=== PATIENT | male | born 1955 | race Caucasian/White ===

== ENCOUNTER 2019-12-14 13:29 | Emergency (ER) | payer MEDICAID ==
[2019-12-14] MEDS ORDERED: Sodium Chloride 0.9% 1,000 ML IV ONE (14:11)
[2019-12-14] MEDS ORDERED: Ondansetron 4 MG/2 ML SDV IVPUSH ONE (14:11)
[2019-12-14] MEDS ORDERED: HYDROmorphone 0.5 MG/0.5 ML Syringe IVPUSH ONE (14:11)
--- NOTE | 2019-12-14 14:19 | EDM.PDOC ---
ED HPI GENERAL MEDICAL PROBLEM - General Chief Complaint: Gastrointestinal Problem Stated Complaint: PAIN LOWER ABDOMEN Time Seen by Provider: 12/14/19 14:00 Source of Information: Reports: Patient History Limitations: Reports: No Limitations - History of Present Illness INITIAL COMMENTS - FREE TEXT/NARRATIVE: Moy is a 64 year old male, presents to the ED today with c/o lower abdominal pain. Patient has no hx of this, ate some smoked chicken yesterday, had lower pain a few hours later, felt bloated and constipated, took some Dulcolax and had a bowel movement. Today felt better, ate lunch now has more pain. denies any vomiting, some nausea, several small stools today, no blood. Patient denies any hx of this, did have a colonoscopy a couple of years ago with diverticulosis. Patient denies any abdominal surgical hx. Nothing has made pain better or worse today. Onset: Gradual Duration: Day(s): (2) Lower Abdomen Pain Score (Numeric/FACES): 3 - Related Data Allergies Allergy/AdvReac Type Severity Reaction Status Date / Time Fish Containing Products Allergy Anaphylactic Verified 12/14/19 13:49 Shock NSAIDS (Non-Steroidal Allergy Other Verified 12/14/19 13:49 Anti-Inflamma peanut Allergy Anaphylactic Verified 12/14/19 13:49 Shock Home Meds: Home Meds Aspirin [Halfprin] 81 mg PO DAILY 03/21/18 [History] Cholecalciferol (Vitamin D3) [Vitamin D3] 1,000 unit PO BID 03/21/18 [History] Furosemide [Lasix] 40 mg PO DAILY 03/21/18 [History] Lisinopril 10 mg PO BID 03/21/18 [History] Simvastatin [Zocor] 40 mg PO BEDTIME 03/21/18 [History] allopurinoL [Zyloprim] 150 mg PO DAILY 03/21/18 [History] mycophenolate mofetiL [Cellcept] 500 mg PO BID 03/21/18 [History] Past Medical History HEENT History: Reports: Cataract, Impaired Vision Cardiovascular History: Reports: High Cholesterol, Hypertension Respiratory History: Reports: Other (See Below) Other Respiratory History: bronchitis x1 pneumonia x 2 in last 5 years Gastrointestinal History: Reports: None Genitourinary History: Reports: Renal Disease Musculoskeletal History: Reports: Arthritis, Fracture, Gout Oncologic (Cancer) History: Reports: Prostate - Infectious Disease History Infectious Disease History: Reports: Chicken Pox, Measles - Past Surgical History Head Surgeries/Procedures: Reports: None HEENT Surgical History: Reports: None Cardiovascular Surgical History: Reports: None Respiratory Surgical History: Reports: None GI Surgical History: Reports: Colonoscopy, Hernia, Inguinal Male Surgical History: Reports: Penile Surgery, Prostatectomy Musculoskeletal Surgical History: Reports: None Oncologic Surgical History: Reports: None Dermatological Surgical History: Reports: None Social & Family History - Family History Family Medical History: Noncontributory - Tobacco Use Smoking Status *Q: Never Smoker Second Hand Smoke Exposure: No - Caffeine Use Caffeine Use: Reports: Soda - Alcohol Use Days Per Week of Alcohol Use: 3 Number of Drinks Per Day: 1 Total Drinks Per Week: 3 - Recreational Drug Use Recreational Drug Use: No ED ROS GENERAL - Review of Systems Review Of Systems: Comprehensive ROS is negative, except as noted in HPI. ED EXAM, GI/ABD - Physical Exam Exam: See Below Exam Limited By: No Limitations General Appearance: Alert, WD/WN Ears: Normal External Exam Nose: Normal Inspection Throat/Mouth: Normal Inspection Head: Atraumatic Neck: Normal Inspection Respiratory/Chest: No Respiratory Distress, Lungs Clear Cardiovascular: Normal Peripheral Pulses, Regular Rate, Rhythm GI/Abdominal Exam: Normal Bowel Sounds, Soft, Tender (across lower abdomen, left > then right) Back Exam: Normal Inspection Extremities: Normal Inspection Neurological: Alert, Oriented Psychiatric: Normal Affect Skin Exam: Warm, Dry Lymphatic: No Adenopathy Course - Vital Signs Last Recorded V/S: Last Vital Signs Temp 36.6 C 12/14/19 13:54 Pulse 66 12/14/19 15:32 Resp 18 12/14/19 13:54 BP 112/62 12/14/19 15:32 Pulse Ox 98 12/14/19 14:02 Moy is a 64 year old male, presents with lower abdominal pain, constipation type symptoms. Please refer to HPI and focused exam. Tender to lower abdomen, L > R. Concern with diverticulosis for diverticulitis, less likely appendicitis. Low risk for obstruction but on the differential. Blood work obtained, patient given IV fluids here with IV Dilaudid with pain improvement. Blood work reassuring, normal white count. UA negative, mildly elevated CRP. CT scan consistent with diverticulitis, no rupture or abscess noted. Patient updated, discussed in detail. Will start on Cipro/Flagyl. Zofran for nausea as needed. Oxycodone for pain, narcotic safety and side effects discussed. Follow up with PCP on Tuesday as scheduled (physical), reasons to return to the ED discussed, patient and agreeable and patient discharged in stable condition. - Orders/Labs/Meds Orders: Active Orders 24 hr Category Date Time Status Peripheral IV Care [RC] . DIRECTED Care 12/14/19 14:10 Active Iopamidol [Isovue-300 (61%)] Med 12/14/19 15:00 Active 150 ml IV . DIRECTED Sodium Chloride 0.9% [Normal Saline] 80 ml Med 12/14/19 15:00 Active IV ASDIRECTED Sodium Chloride 0.9% [Saline Flush] Med 12/14/19 14:10 Active 10 ml FLUSH ASDIRECTED PRN Peripheral IV Insertion Adult [OM.PC] Routine Oth 12/14/19 14:10 Ordered Medication Orders Sodium Chloride (Normal Saline) 80 mls @ 3 mls/sec IV ASDIRECTED RADHA Last Admin: 12/14/19 15:32 Dose: 3 mls/sec Documented by: DELMY Iopamidol (Isovue-300 (61%)) 150 ml IV . DIRECTED RADHA Last Admin: 12/14/19 15:32 Dose: 136 ml Documented by: DELMY Sodium Chloride (Saline Flush) 10 ml FLUSH ASDIRECTED PRN PRN Reason: Keep Vein Open Last Admin: 12/14/19 15:32 Dose: 10 ml Documented by: Admin: 12/14/19 14:30 Dose: 10 ml Documented by: JOAQUÍN Labs: Laboratory Tests 12/14/19 12/14/19 12/14/19 Range/Units 14:10 14:17 14:17 WBC 7.9 (4.5-11.0) K/uL RBC 4.81 (4.30-5.90) M/uL Hgb 14.3 (12.0-15.0) g/dL Hct 44.1 (40.0-54.0) % MCV 92 (80-98) fL MCH 30 (27-31) pg MCHC 32 (32-36) % Plt Count 198 (150-400) K/uL Neut % (Auto) 76 H (36-66) % Lymph % (Auto) 16 L (24-44) % [place] % (Auto) 8 H (2-6) % Eos % (Auto) 1 L (2-4) % Baso % (Auto) 0 (0-1) % Sodium 140 (140-148) mmol/L Potassium 3.7 (3.6-5.2) mmol/L Chloride 104 (100-108) mmol/L Carbon Dioxide 26 (21-32) mmol/L Anion Gap 10.0 (5.0-14.0) mmol/L BUN 13 (7-18) mg/dL Creatinine 1.1 (0.8-1.3) mg/dL Est Cr Clr Drug Dosing 76.67 mL/min Estimated GFR (MDRD) > 60 (>60) Glucose 137 H (74-106) mg/dL Calcium 8.7 (8.5-10.1) mg/dL Total Bilirubin 0.7 (0.2-1.0) mg/dL AST 17 (15-37) U/L ALT 15 (12-78) U/L Alkaline Phosphatase 75 (46-116) U/L C-Reactive Protein 14.89 H (0.0-0.3) mg/dL Total Protein 6.6 (6.4-8.2) g/dL Albumin 3.1 L (3.4-5.0) g/dL Globulin 3.5 (2.3-3.5) g/dL Albumin/Globulin Ratio 0.9 L (1.2-2.2) Lipase 90 (73-393) U/L Urine Color Yellow (YELLOW) Urine Appearance Clear (CLEAR) Urine pH 6.0 (5.0-8.0) Ur Specific [place] 1.025 (1.008-1.030) Urine Protein Negative (NEGATIVE) mg/dL Urine Glucose (UA) Negative (NEGATIVE) mg/dL Urine Ketones Negative (NEGATIVE) mg/dL Urine Occult Blood Negative (NEGATIVE) Urine Nitrite Negative (NEGATIVE) Urine Bilirubin Negative (NEGATIVE) Urine Urobilinogen 0.2 (0.2-1.0) EU/dL Ur Leukocyte Esterase Negative (NEGATIVE) Urine RBC Not seen (0-5) Urine WBC Not seen (0-5) Ur Epithelial Cells Not seen Amorphous Sediment Few Urine Bacteria Not seen Urine Mucus Not seen Meds: Medications Generic Name Dose Route Start Last Admin Trade Name Freq PRN Reason Stop Dose Admin Sodium Chloride 80 mls @ 3 mls/sec 12/14/19 15:00 12/14/19 15:32 Normal Saline IV 3 mls/sec ASDIRECTED RADHA Administration Iopamidol 150 ml 12/14/19 15:00 12/14/19 15:32 Isovue-300 (61%) IV 136 ml . DIRECTED RADHA Administration Sodium Chloride 10 ml 12/14/19 14:10 12/14/19 15:32 Saline Flush FLUSH 10 ml ASDIRECTED PRN Administration Keep Vein Open Discontinued Medications Generic Name Dose Route Start Last Admin Trade Name Azucena PRN Reason Stop Dose Admin Hydromorphone HCl 0.5 mg 12/14/19 14:11 12/14/19 14:33 Dilaudid IVPUSH 12/14/19 14:12 0.5 mg ONETIME ONE Administration Sodium Chloride 1,000 mls @ 999 mls/hr 12/14/19 14:11 12/14/19 14:29 Normal Saline IV 12/14/19 15:11 999 mls/hr .BOLUS ONE Administration Ondansetron HCl 4 mg 12/14/19 14:11 12/14/19 14:33 Zofran IVPUSH 12/14/19 14:12 4 mg ONETIME ONE Administration Departure - Departure Time of Disposition: 17:00 Disposition: Home, Self-Care 01 Condition: Good Clinical Impression: Diverticulitis - Discharge Information Instructions: Diverticulitis Referrals: Tanner Garcia MD [Primary Care Provider] - Forms: ED Department Discharge Additional Instructions: Stay well hydrated. Tylenol for pain, 650 mg every 4 hours as needed. Oxycodone for severe pain as needed as prescribed. This can cause constipation, take with stool softener such as Colace or Miralax. Do not drive or drink alcohol if you take it. Start antibiotics this evening, take as prescribed. I would recommend a good probiotic or yogurt as well. Avoid small seeds/fibrous foods which can often be the culprit for diverticulitis. Return here with any worsening symptoms or new concerns. It was nice meeting you, I hope you feel better soon. Diet details for Diverticulitis Your diet starts with only clear liquids for a few days. Examples of items allowed on a clear liquid diet include: * Broth * Fruit juices without pulp, such as apple juice * Ice chips * Ice pops without bits of fruit or fruit pulp * Gelatin * Water * Tea or coffee without cream As you start feeling better, your doctor will recommend that you slowly add low- fiber foods. Examples of low-fiber foods include: * Canned or cooked fruits without skin or seeds * Canned or cooked vegetables such as green beans, carrots and potatoes (without the skin) * Eggs, fish and poultry * Refined white bread * Fruit and vegetable juice with no pulp * Low-fiber cereals * Milk, yogurt and cheese * White rice, pasta and noodles * * Foods You Can't Eat with Diverticulitis Diverticulitis is a condition that occurs as a result of not consuming enough fiber. When the body does not take in enough fiber, pouches or pockets form in the colon creating a very painful situation. Without the fiber intake, pressure builds in the colon wall and after a period of time, the weak points balloon up creating diverticuli. Diverticulitis results when the pockets become infected. What Foods Should You Avoid If You Have Diverticulitis? 1. Nuts and Seeds If you have diverticulitis, there are certain foods you should not eat. Any foods that are hard to break down can bring on another attack of diverticulitis by aggravating the intestinal track. When it comes to diverticulitis, foods to avoid include corn, popcorn, nuts, sesame seeds, etc. 2. Grain Products When it comes to grains, you may want to completely refrain. There are residues from the grain that could irritate the stomach. Rather than breads and pasta, you should reach for refined enriched breads and cereals, such as Cheerios and Rice Krispies. 3. Certain Fruits and Vegetables Any fruits and vegetables that have hard seeds or skin should be avoided if you have diverticulitis. Foods to avoid include tomatoes, strawberries, cucumbers, okra, blackberries, kiwi, peppers and eggplant. Other vegetables that you should avoid include cauliflower, [place] chard, cabbage, kale, [place] sprouts, carrots, beets, squash, iceberg lettuce, and zucchini. 4. Dairy Products Dairy products are not foods you should indulge in. Whole milk, whipped cream and coffee creamers that are nondairy can potentially irritate your stomach if you have diverticulitis. Coconut and palm oils are ingredients in store bought whipped cream. You may want to exchange these items for skim milk and low fat yogurt. Other dairy you should watch out for are cream cheese, margarine, butter, and cheddar cheese. 5. Fast and Refined Food Most junk foods, such as pizza, fried snacks, and greasy hamburgers, do not fit in the high fiber diet that people with diverticulitis should be following. These foods could aggravate the stomach potentially, resulting in ulcers or triggering another diverticulitis episode. If you have diverticulitis, foods to avoid include that are very refined. They are in the same category as fast food in that they have no fiber and do more to irritate the lining of the stomach creating discomfort. 6. Alcohol and Tobacco Both alcohol and tobacco are also foods to avoid with diverticulitis. Both of these items have a good chance of irritating your colon and gastric mucosa. Tobacco causes other health risks so it is in your best interest to quit completely. But if you feel that you would still like to have an occasional drink, speak with your doctor and see what the consequences would be. If it is not something that you would partake of on a regular basis, chances are it will be okay. 7. Other Foods With diverticulitis, foods to avoid also include those that are spicy, sugary and acidic because they all can somehow worsen the condition. * Spicy foods can be upsetting for many people to handle; for those who suffer from diverticulitis, they can dry out the lining of the stomach. Any foods such as hot peppers or chili should be avoided or you will find yourself tending to a painful stomach ache. * Sugary foods can aggravate your condition as well as give you gas and leave you bloated. * Acidic foods such as tomatoes and citrus fruits have been known to cause diverticulitis to flare up and even make things worse. What Are the Best Foods for Diverticulitis Patients? While this article went in depth into foods to avoid with diverticulitis, you are probably wondering what you can eat. After you have been diagnosed with this condition, you should begin with a liquid diet. After you have lived on liquids for a couple of days, you can then move to a low fiber eating plan including: * Water * Broth * Fruit juices * Ice pops Once you are feeling better, you can start to work back into your regular diet. Check with your doctor to see if he wants you to start off with low fiber foods, such as eggs, poultry, meat, white bread and dairy products. Finally, you will move on to a high fiber diet. The good news is the fiber will help your stools move through you faster and helps them pass through your colon with no trouble. It also helps to relieve pressure on your digestive system. Studies have confirmed that eating foods rich in fiber can actually help keep the repercussions of diverticulitis under control. The ideal amount of fiber you might want to include is 25 to 35 grams each day. Here are some to start with: * Kidney beans, black beans, and most other varieties * Coffee, tea and juice * High fiber veggies like peas, spinach, squash and potatoes * Watermelon, apricots, grapes, peaches, applesauce and any other high fiber fruits * Pasta, cereal and whole grain breads If youre not sure what you should or shouldnt be eating when you have diverticulitis, talk with a sales representative jewelry or health healthcare receptionist and see what they suggest. If you suffer from constipation, you should make sure you drink plenty of water during the day. You may also want to try a fiber supplement like Metamucil or Citrucel up to three times each day. Sepsis Event Note (ED) - Evaluation Sepsis Screening Result: No Definite Risk - Focused Exam Vital Signs: Vital Signs Temp Pulse Resp BP Pulse Ox 12/14/19 15:32 66 112/62 12/14/19 14:02 75 116/68 98 12/14/19 13:54 36.6 C 75 18 129/67 100 12/14/19 13:53 36.6 C 75 18 129/67 100 - My Orders Last 24 Hours: My Active Orders 12/14/19 14:10 Peripheral IV Care [RC] . DIRECTED Sodium Chloride 0.9% [Saline Flush] 10 ml FLUSH ASDIRECTED PRN Peripheral IV Insertion Adult [OM.PC] Routine 12/14/19 15:00 Iopamidol [Isovue-300 (61%)] 150 ml IV . DIRECTED Sodium Chloride 0.9% [Normal Saline] 80 ml IV ASDIRECTED - Assessment/Plan Last 24 Hours: My Active Orders 12/14/19 14:10 Peripheral IV Care [RC] . DIRECTED Sodium Chloride 0.9% [Saline Flush] 10 ml FLUSH ASDIRECTED PRN Peripheral IV Insertion Adult [OM.PC] Routine 12/14/19 15:00 Iopamidol [Isovue-300 (61%)] 150 ml IV . DIRECTED Sodium Chloride 0.9% [Normal Saline] 80 ml IV ASDIRECTED
[2019-12-14] MEDS: Sodium Chloride 0.9% 10 ML Syringe FLUSH PRN ×2 (14:30→15:32)
[2019-12-14] MEDS ORDERED: Sodium Chloride 0.9% 80 ML IV SCH (15:00)
[2019-12-14] MEDS ORDERED: Iopamidol 612 MG/ML 150 ML Bottle IV SCH (15:00)
--- NOTE | 2019-12-14 16:19 | CRLCT ---
INDICATION: Lower abdominal pain TECHNIQUE: CT abdomen and pelvis acquired with 136 cc Isovue-300 IV contrast. COMPARISON: None FINDINGS: Lower chest: Unremarkable. Liver: Unremarkable. Spleen: Unremarkable. Pancreas: Unremarkable. Gallbladder and bile ducts: Unremarkable. Adrenal glands: Unremarkable. Kidneys: Simple cyst right kidney. GI tract: Mild colonic diverticulosis. Wall thickening and fat stranding involving the distal sigmoid colon. No extraluminal air or abscess. Fluid in the proximal colon. The appendix measures 6.7 cm. Vascular structures: Unremarkable. Lymph nodes: Unremarkable. Miscellaneous: Small fat containing left inguinal hernia. Pelvic Organs: There is a penile implant. Bones: Old superior endplate fracture the L2 vertebrae. IMPRESSION: Acute diverticulitis of the distal sigmoid colon. No extraluminal air or abscess. The appendix is mildly dilated at 6.7 cm. Acute appendicitis cannot be excluded. Correlate with physical exam. Small fat containing left inguinal hernia. Please note that all CT scans at this facility use dose modulation, iterative reconstruction, and/or weight-based dosing when appropriate to reduce radiation dose to as low as reasonably achievable. Dictated by Amara Davis MD @ Dec 14 2019 4:03PM Signed by Dr. Amara Davis @ Dec 14 2019 4:17PM
== END 2019-12-14 16:54 | disposition home or self-care (01) ==
LOC: JP.ED 13:29
DX: K57.32 Diverticulitis of large intestine without perforation or abscess without bleeding (principal); I10 Essential (primary) hypertension; E78.00 Pure hypercholesterolemia, unspecified; Z91.013 Allergy to seafood; Z88.6 Allergy status to analgesic agent; Z91.010 Allergy to peanuts; Z79.82 Long term (current) use of aspirin; Z79.899 Other long term (current) drug therapy
CPT/HCPCS: 36415; 74177; 80053; 81001; 83690; 85025; 86140; 96374; 96375; 99284; J1170; J2405; J7030; J7050; Q9967